=== PATIENT | male | born 1970 | race Caucasian/White ===

== ENCOUNTER → 2020-11-10 10:12 | Outpatient (CLI) | payer BC, SELFPAY ==
[2020-11-10 12:05] LABS: Basophils # 0.1 K/mm3 (0-0.2); Eosinophils # 0.2 K/mm3 (0.0-0.4); Eosinophils % 1.5 % (0.1-12.0); Hematocrit 52.2 % (42.0-52.0); Lymphocytes # 1.2 K/mm3 (0.7-4.5); Lymphocytes % 10.1 % (10-50); Mean Corpuscular Hemoglobin 33.3 pg (27.0-31.2); Mean Corpuscular Volume 95.1 fl (80-94); Mean Platelet Volume 8.6 fl (7.4-10.4); Monocytes # 0.6 K/mm3 (0.1-1.0); Monocytes % 5.1 % (1.7-9.3); Neutrophils # 9.4 K/mm3 (1.8-7.8); Neutrophils % 82.3 % (37.0-80.0); Platelet Count 259 K/mm3 (142-424); Red Blood Count 5.49 M/mm3 (4.60-6.20); Red Cell Distribution Width 14.1 % (11.5-17.5); White Blood Count 11.4 K/mm3 (4.8-10.8)
[2020-11-10 17:10] LABS: Hemoglobin 18.2 g/dL (14.1-18.0)
== END ==
PROVIDERS: PCP Family Medicine; Visit Provider Physician Assistant
DX: Z20.822 Contact with and (suspected) exposure to COVID-19 (principal)
CPT/HCPCS: 85025; U0003

== ENCOUNTER → 2021-08-02 14:00 | Outpatient (CLI) | payer BC, SELFPAY | PROVIDERS: Visit Provider Family Medicine | DX: H61.892 Other specified disorders of left external ear (principal) | CPT/HCPCS: 87070; 87205 ==

== ENCOUNTER 2022-05-02 09:34 | Emergency (ER) | payer BC, SELFPAY ==
[2022-05-02 09:51] VITALS: BP 138/88; PULSE 103; RESP 18; TEMP 36.7; O2SAT 97; BMI 38.7
--- NOTE | 2022-05-02 10:00 | HMH.EDUTC ---
[facility] Disposition Clinical Impression: Viral syndrome Sinusitis Qualifiers: Sinusitis location: unspecified location Chronicity: acute Recurrence: non-recurrent Qualified Code(s): J01.90 - Acute sinusitis, unspecified Disposition: Home, Self-Care Condition on Discharge: Good Instructions: DI for Sinusitis Additional Instructions: Drink plenty of fluids. Take tylenol or ibuprofen for pain or fever. Take the medications as directed. Follow up with your regular doctor. GO TO THE ER FOR ANY WORSENING SYMPTOMS uarantine until you know the results of your covid-19 test. Notify your school or workplace of your results and follow their instructions regarding return to work/school. Prescriptions: Benzonatate [Benzonatate 100mg cap] 100 mg PO TIDP PRN #30 cap PRN Reason: Cough Transmission Status: Received by [facility] methylPREDNISolone [Medrol] 4 mg PO DIRECTED 6 Days #21 packet Transmission Status: Received by [facility] Azithromycin [Z-Ike 250mg Tab*] 250 mg PO UD DOSE PK #6 tab Transmission Status: Received by [facility] Referrals: Geo Crooks MD [Primary Care Provider] - Time of Disposition: 10:15 Medical Decision Making - Medical Records Medical records reviewed: No: I reviewed the patient's medical records. - Asim Inquiry Pt receiving controlled substance: No Vital Signs: 05/02/22 09:51 05/02/22 10:25 Temperature 98.1 F 98.1 F Temperature Source Oral Oral Pulse Rate 94 H Pulse Rate [Left Radial] 103 H Respiratory Rate 18 18 Blood Pressure 130/79 Blood Pressure [Right Arm] 138/88 Blood Pressure Mean [Right Arm] 104 02 Sat by Pulse Oximetry 97 Oxygen Delivery Method Room Air Room Air Orders (Tests/Meds): ORDERS Category Date Time Status Covid-19 Nasal PCR ([facility]) Routine Lab 05/02/22 09:47 Received [facility] HPI - General Stated complaint: bodyaches, feverish, head congestion Time Seen by Provider: 05/02/22 10:00 Mode of Arrival: Ambulatory Source of Information: Patient Limitations: No Limitations Description of Symptoms (Recalled from Triage Doc. by RN): pt to [facility] c/o body aches, congestion and weakness that started this morning. HEENT Symptoms (Recalled from RN notes): Yes Resp Symptoms (Recalled from RN notes): No Skin Symptoms (Recalled from RN notes): No MS Symptoms (Recalled from RN notes): No Functional Status (Recalled from RN notes): na - History of Present Illness Provider Complaint: He c/o body aches, chills, and malaise since this morning. He started having a head ache and sinus congestion last night. He denies significant cough. - Related Data Home Medications Medication Instructions Recorded Confirmed metoprolol succinate 25 mg capsule 25 mg PO DAILY 07/13/18 05/02/22 sprinkle, ext. release 24 hr omeprazole 10 mg capsule,delayed 10 mg PO DAILY 07/13/18 05/02/22 release Previous Rx's Medication Instructions Recorded Azithromycin [Z-Ike 250mg Tab*] 250 mg PO UD DOSE PK #6 tab 05/02/22 Benzonatate [Benzonatate 100mg 100 mg PO TIDP PRN #30 cap 05/02/22 cap] methylPREDNISolone [Medrol] 4 mg PO DIRECTED 6 Days #21 05/02/22 packet Allergies Allergy/AdvReac Type Severity Reaction Status Date / Time Penicillins [PENICILLINS] Allergy Unknown Verified 05/02/22 09:51 - Worker's Comp Is this a Worker's Comp case?: No [facility] History - Hepatitis A Screen Attestation statement:: This patient has been screened for Hepatitis A risk factors. I have reviewed the patient's past medical history: Yes Medical History: Reports:: Gastroesophageal Reflux Disease(GERD), Hypertension Other Medical History: Reports: Other (gout) Other Surgeries: Yes: No Previous Surgery - Social History Smoking Status: Current every day smoker Tobacco Type: cigarettes # Packs/Day (cigarettes): 1 Alcohol Intake: current Alcohol Intake Frequency:: a few times a month Occu
[2022-05-02 10:25] VITALS: BP 130/79; PULSE 94; RESP 18; TEMP 36.7; O2SAT 97
== END 2022-05-02 10:26 | disposition home or self-care (01) ==
LOC: UTC 09:41
PROVIDERS: Emergency Provider Nurse Practitioner Family; PCP Family Medicine
DX: J01.90 Acute sinusitis, unspecified (principal)
CPT/HCPCS: 99212; C9803; G0463; U0003; U0005

== ENCOUNTER 2024-08-07 10:18 | Observation (INO) | payer BC, SELFPAY ==
[2024-08-07] VITALS (12 sets, daily range): BP systolic 141–188; BP diastolic 72–104; PULSE 102–129; RESP 16–20; TEMP 36.6–36.9; O2SAT 95–99; BMI 26.8; BMI 40.1; BMI 41.0
[2024-08-07 10:51] LABS: Microscopic, Urine URINE MICROSCOPIC (MICROSCOPIC)
[2024-08-07 10:53] LABS: Appearance,Urine CLEAR (Clear); Bilirubin,Urine Negative (Negative); Blood, Urine Negative (Negative); Color,Urine YELLOW (Yellow); Glucose,Urine (UA) Negative (Negative); Ketones,Urine Negative (Negative); Leukocyte Esterase,Urine Negative (Negative); Nitrate,Urine Negative (Negative); PH,Urine 6.5 (5.0-8.5); Protein,Urine Negative (Negative); Urobilinogen,Urine 0.2 EU/dl (0.2)
--- NOTE | 2024-08-07 11:13 | EXP.UTC ---
Discharge Plan Disposition Patient Disposition: Still a Patient Condition: Good Clinical Impressions Clinical Impression: Diverticulitis Discharge ED Provider: Judson Godinez [facility] HPI General Chief complaint: Urogenital-Male Stated complaint: possibly prostate problems Mode of Arrival: Ambulatory Source of Information: Patient Limitations: No Limitations Time Seen by Provider: 08/07/24 11:13 Description of Symptoms (Recalled from Triage Doc. by RN): PATIENT C/O LOWER ABDOMINAL/PELVIC AND LOWER BACK PAIN THAT STARTED FRIDAY HEENT Symptoms (Recalled from RN notes): No Resp Symptoms (Recalled from RN notes): No Skin Symptoms (Recalled from RN notes): No MS Symptoms (Recalled from RN notes): No Functional Status (Recalled from RN notes): WNL History of Present Illness Provider Complaint: Patient states he has been having pain in his lower abdomen/pevic area and lower back since States that at times the pain feels like it goes into his groin and penis area, States pain started on and he did do some heavy lifting last week helping a friend, States he did have Prostatitis several years ago that was similar to thius ad seen urology, Denies hematuria denies hx of kidney stones, denies fever, denies chills, reports burning at times with urine Related Data Home Medications ?Medication ?Instructions ?Recorded ?Confirmed colchicine 0.6 mg tablet 0.6 mg PO DAILY 08/07/24 08/07/24 irbesartan 150 mg tablet 150 mg PO DAILY 08/07/24 08/07/24 omeprazole 20 mg capsule,delayed 20 mg PO DAILY 08/07/24 08/07/24 release Allergies Allergy/AdvReac Type Severity Reaction Status Date / Time Penicillins [PENICILLINS] Allergy Unknown Verified 01/26/24 10:36 Worker's Comp Is this a Worker's Comp case?: No [facility] Disclaimer: The information contained in this section may have been updated after the patient was seen, as this information can be updated by other users. Medical History (Updated 08/07/24 @ 16:59 by Adam Mccurdy MD) Cauliflower ear Gout GERD (gastroesophageal reflux disease) Hypertension Surgical History No significant past surgical history Family History Other No significant family history Social History (Updated 08/07/24 @ 16:14 by Taniya Quiroz RN) Smoking Status: Current every day smoker tobacco type: cigarettes packs per day: 1 alcohol intake: current alcohol intake frequency: a few times a month current occupational status: employed Travel in the last 8 weeks: Inside the [place] ROS Obtained: Yes All systems reviewed & no additional complaints except as documented and Yes Systems reviewed as appropriate & no additional complaints except as documented Constitutional Constitutional: Reports system reviewed and no additional complaints, except as documented, Reports as per HPI, Denies body ache, Denies chills and Denies fever(s) ENT Ears, Nose, Mouth, and Throat: Reports system reviewed and no additional complaints, except as documented and Reports as per HPI Cardiovascular Cardiovascular: Reports system reviewed and no additional complaints, except as documented and Reports as per HPI Respiratory Respiratory: Reports system reviewed and no additional complaints, except as documented and Reports as per HPI Gastrointestinal Gastrointestingal: Reports system reviewed and no additional complaints, except as documented, as per HPI and abdominal pain (lower abdominal pain); Denies nausea Genitourinary Male Genitourinary: Reports system reviewed and no additional complaints, except as documented, Reports as per HPI, Reports urinary urgency and Reports other (burning at times with urination) Physical Exam General General appearance: alert and in no apparent distress ENT ENT exam: Present mucous membranes moist Respiratory Respiratory exam: Present normal lung sounds bilaterally; Absent respiratory distress or wheezes Cardiovascular Cardiovascular exam: Present regular rate, normal rhythm and tachycardia Abdominal Exam Abdominal exam: Present soft and tenderness (reports tenderness with palpation in lower abdomen/pelvic area) Back Exam Back 1 view image: 1. reports achy like pain on and off since Neurological Exam Neurological exam: Present alert, oriented X3 and normal gait Medical Decision Making Medical Records Screening: Per USPSTF and CDC recommendations, given the prevalence of disease in our region, it is our hospital?s policy to screen for HIV and viral Hepatitis for all patients aged 18 and over and those with ongoing risk factors. Asim Inquiry Pt receiving controlled substance: No Asim was queried for this patient: No Vital Signs: 08/07/24 10:50 Temperature 97.8 F Temperature Source Oral Pulse Rate [Left Brachial] 110 H Respiratory Rate 18 Blood Pressure [Left Arm] 166/103 H Blood Pressure Mean [Left Arm] 124 Blood Pressure Source [Left Arm] Automatic Cuff Blood Pressure Position [Left Arm] Sitting 02 Sat by Pulse Oximetry 98 Oxygen Delivery Method Room Air Lab Data Lab results reviewed: Yes I reviewed the patient's lab results. 08/07/24 11:50 08/07/24 11:50 Orders (Tests/Meds): ORDERS Category Date Time Status UA [Urinalysis and Microscopic] Stat Lab 08/07/24 10:41 Received Medical Decision Narrative: Discussed with patient and recommended transfer to the ED for further work up and evaluation due to complaint of lower abdomen pain and patient declined at this time, wants to wait until urine results back Urine results back again discussed with patient about transfer to the ED for furhter work up and evaluation and initially patient declined then states that pain is getting worse and wanting to go to the ED to get something to help with the pain, states pain in his pelvic area is worse than it was on arrival
[2024-08-07 11:15] LABS: WBC,Urine Occasional #/hpf (0-3)
--- NOTE | 2024-08-07 11:43 | PC.NURSE ---
PATIENT SENT TO ER PER. Alpesh DAWSON APRN FOR FURTHER EVALUATION. REPORT GIVEN TO DR. NEWBERRY BY Alpesh DAWSON APRN. PATIENT AMBULATED TO ER WITH ER STAFF ASSIST AT THIS TIME
--- NOTE | 2024-08-07 11:44 | PC.NURSE ---
pt arrived to er from [facility]
--- NOTE | 2024-08-07 12:24 | ED_ITS ---
Discharge Plan Disposition Patient Disposition: Still a Patient Condition: Good Clinical Impressions Clinical Impression: Diverticulitis Discharge ED Provider: Judson Godinez Adult HPI General Chief complaint: Urogenital-Male Stated complaint: possibly prostate problems Time Seen by Provider: 08/07/24 11:13 Mode of Arrival: Ambulatory Source of Information: Patient Limitations: No Limitations Description of Symptoms (Recalled from ER Triage Doc. by RN): pelvic and anal pain. burning when he urinates. pressure History of Present Illness HPI narrative: Patient is a 54-year-old male past medical history of hypertension presenting for abdominal pain. Patient states since has been having lower abdominal pain that radiates to his back intermittently. Patient said that this is similar to symptoms he has had in the past with prostatitis and was ultimately seen by urologist in [place] and the pain resolved. Patient has had no fevers, dysuria, chest pain, shortness of breath, diarrhea or nausea. Patient said that he has no pain with defecation. Patient was initially seen in the urgent treatment center who did a urinalysis that was negative but his pain continued and was transferred here for further evaluation. Related Data Home Medications ?Medication ?Instructions ?Recorded ?Confirmed colchicine 0.6 mg tablet 0.6 mg PO DAILY 08/07/24 08/07/24 irbesartan 150 mg tablet 150 mg PO DAILY 08/07/24 08/07/24 omeprazole 20 mg capsule,delayed 20 mg PO DAILY 08/07/24 08/07/24 release Allergies Allergy/AdvReac Type Severity Reaction Status Date / Time Penicillins [PENICILLINS] Allergy Unknown Verified 01/26/24 10:36 [facility] Disclaimer: The information contained in this section may have been updated after the patient was seen, as this information can be updated by other users. Medical History (Updated 08/07/24 @ 16:14 by Taniya Quiroz RN) Cauliflower ear Gout GERD (gastroesophageal reflux disease) Hypertension Surgical History No significant past surgical history Family History Other No significant family history Social History (Updated 08/07/24 @ 16:14 by Taniya Quiroz RN) Smoking Status: Current every day smoker tobacco type: cigarettes packs per day: 1 alcohol intake: current alcohol intake frequency: a few times a month current occupational status: employed Travel in the last 8 weeks: Inside the [place] Other Medical History Have you received the Pneumonia Vaccine: No ROS Obtained: Yes Systems reviewed as appropriate & no additional complaints except as documented Physical Exam General General appearance: alert, anxious and other (Appears uncomfortable in bed) Chest Chest inspection: Present symmetric chest wall rise Respiratory Respiratory exam: Present normal lung sounds bilaterally; Absent respiratory distress Cardiovascular Cardiovascular exam: Present tachycardia Abdominal Exam Abdominal exam: Present soft and tenderness; Absent guarding or rebound Abdominal tenderness: Present RLQ (More prominent than left lower quadrant) and LLQ exam: Present normal inspection Extremities Exam Extremities exam: Present normal inspection Neurological Exam Neurological exam: Present alert and oriented X3 Psychiatric Psychiatric exam: Present anxious Skin Skin exam: Present warm and dry Medical Decision Making Medical Records Screening: Per USPSTF and CDC recommendations, given the prevalence of disease in our region, it is our hospital?s policy to screen for HIV and viral Hepatitis for all patients aged 18 and over and those with ongoing risk factors. Asim Inquiry Pt receiving controlled substance: No Vital Signs: 08/07/24 10:50 08/07/24 11:45 08/07/24 12:00 Temperature 97.8 F 98.2 F Temperature Source Oral Oral Pulse Rate 102 H Pulse Rate [Left Brachial] 110 H 117 H Respiratory Rate 18 18 Blood Pressure 171/94 H Blood Pressure [Left Arm] 166/103 H 161/104 H Blood Pressure Mean [Left Arm] 124 123 Blood Pressure Source [Left Arm] Automatic Cuff Blood Pressure Position [Left Arm] Sitting 02 Sat by Pulse Oximetry 98 99 97 Oxygen Delivery Method Room Air Room Air 08/07/24 12:30 08/07/24 13:01 08/07/24 13:30 Temperature Temperature Source Pulse Rate 117 H 114 H 119 H Pulse Rate [Left Brachial] Respiratory Rate Blood Pressure 188/93 H 161/90 H 145/79 H Blood Pressure [Left Arm] Blood Pressure Mean [Left Arm] Blood Pressure Source [Left Arm] Blood Pressure Position [Left Arm] 02 Sat by Pulse Oximetry 99 98 98 Oxygen Delivery Method Room Air Room Air Room Air 08/07/24 14:00 08/07/24 14:24 08/07/24 14:30 Temperature Temperature Source Pulse Rate 123 H 129 H 125 H Pulse Rate [Left Brachial] Respiratory Rate 20 Blood Pressure 141/89 H 141/89 H 156/84 H Blood Pressure [Left Arm] Blood Pressure Mean [Left Arm] Blood Pressure Source [Left Arm] Blood Pressure Position [Left Arm] 02 Sat by Pulse Oximetry 95 97 96 Oxygen Delivery Method Room Air Room Air Room Air 08/07/24 15:50 Temperature 98.4 F Temperature Source Pulse Rate 123 H Pulse Rate [Left Brachial] Respiratory Rate 20 Blood Pressure 156/84 H Blood Pressure [Left Arm] Blood Pressure Mean [Left Arm] Blood Pressure Source [Left Arm] Blood Pressure Position [Left Arm] 02 Sat by Pulse Oximetry Oxygen Delivery Method Room Air Lab Data Lab Results 08/07/24 10:41: Urine Color Yellow, Urine Appearance Clear, Urine pH 6.5, Ur Specific [place] 1.020, Urine Protein Negative, Urine Glucose (UA) Negative, Urine Ketones Negative, Urine Blood Negative, Urine Nitrate Negative, Urine Bilirubin Negative, Urine Urobilinogen 0.2, Ur Leukocyte Esterase Negative, Urine RBC None, Urine WBC Occasional 08/07/24 11:50: WBC 12.4 H, RBC 5.18, Hgb 17.5, Hct 49.6, MCV 95.7 H, MCH 33.8 H , MCHC 35.3, RDW 14.2, Plt Count 327, MPV 8.5, Neut % (Auto) 85.9 H, Lymph % (Auto) 8.1 L, [place] % (Auto) 3.3, Eos % (Auto) 1.6, Baso % (Auto) 1.1, Neut # (Auto) 10.7 H, Lymph # (Auto) 1.0, [place] # (Auto) 0.4, Eos # (Auto) 0.2, Baso # (Auto) 0.1, Total Counted 100, Neutrophils % (Manual) 86 H, Lymphocytes % (Manual) 6 L, Monocytes % (Manual) 7, Eosinophils % (Manual) 1, Platelet Estimate Normal, RBC Morphology Normal, Sodium 136, Potassium 4.4, Chloride 102, Carbon Dioxide 27, Anion Gap 11.4, BUN 11, Creatinine 1.20, Estimated Creat Clear 129, Estimated GFR 64, Est GFR ( Amer) 77, Glucose 131 H, Calcium 9.3, Total Bilirubin 1.2, AST 42, ALT 59, Alkaline Phosphatase 92, Total Protein 7.8, Albumin 4.8, Globulin 3.0, Albumin/Globulin Ratio 1.6, Lipase 67 08/07/24 12:42: Lactate 1.4 08/07/24 11:50 08/07/24 11:50 Orders (Tests/Meds): ED MEDICATIONS Generic Name Dose Route Start Last Admin Trade Name Angel PRN Reason Stop Dose Admin Acetaminophen 650 mg 08/07/24 16:34 Acetaminophen 325mg Tab PO 09/06/24 16:33 Q6HP PRN Fever or Mild Pain (1-3) Piperacillin Sod/Tazobactam 100 mls @ 200 mls/hr 08/07/24 14:30 08/07/24 15:14 Sod 4.5 gm/ Sodium Chloride IV 08/17/24 14:29 200 mls/hr Q8H STONEY Administration Sodium Chloride 1,000 mls @ 150 mls/hr 08/07/24 16:45 Sod Chlor 0.9% 1000ml Bag IV 09/06/24 16:44 .Q6H40M STONEY Morphine Sulfate 2 mg 08/07/24 16:34 Morphine 2mg/Ml Syringe IV 09/06/24 16:33 Q2HP PRN Severe Pain (7-10) Nicotine 14 mg 08/07/24 15:30 08/07/24 15:39 Nicotine 14mg/24hrs Patch TD 09/06/24 15:29 Not Given DAILY STONEY Nicotine 21 mg 08/08/24 09:00 08/07/24 15:40 Nicotine 21mg/24hr Patch TD 09/07/24 08:59 21 mg DAILY STONEY Administration Discontinued Medications Generic Name Dose Route Start Last Admin Trade Name Angel PRN Reason Stop Dose Admin Acetaminophen 1,000 mg 08/07/24 12:24 08/07/24 12:36 Acetaminophen 500mg Tab PO 08/07/24 12:25 1,000 mg ONCE ONE Administration Lactated Ringer's 1,000 mls @ 999 mls/hr 08/07/24 12:24 08/07/24 12:36 Lactated Ringer's 1000 Ml Bag IV 08/07/24 13:24 999 mls/hr .Q1H1M ONE Administration Lactated Ringer's 1,000 mls @ 999 mls/hr 08/07/24 14:26 08/07/24 15:54 Lactated Ringer's 1000 Ml Bag IV 08/07/24 15:26 999 mls/hr .Q1H1M ONE Administration Iopamidol 75 ml 08/07/24 13:53 08/07/24 13:54 Iopamidol-370 (76%);100ml Bottle IV 08/07/24 13:54 75 ml ONCE ONE Administration Morphine Sulfate 4 mg 08/07/24 12:24 08/07/24 12:41 Morphine 4mg/Ml Syringe IV 08/07/24 12:25 Not Given ONCE ONE Ondansetron HCl 4 mg 08/07/24 12:24 08/07/24 12:41 Ondansetron 4mg/2ml Vial IV 08/07/24 12:25 Not Given ONCE ONE Sodium Chloride 10 ml 08/07/24 13:53 08/07/24 13:54 Sodium Chloride 0.9% 10ml Syr (Rad Only) IV 08/07/24 13:54 10 ml ONCE ONE Administration ORDERS Category Date Time Status CT abdomen pelvis w con Stat Cat Scan 08/07/24 12:25 Completed Complete Blood Count Auto Diff Stat Lab 08/07/24 11:50 Completed Comprehensive Metabolic Panel Stat Lab 08/07/24 11:50 Completed HIV (1&2) Antibody Rapid Stat Lab 08/07/24 11:50 Received Hep C Ab with Reflex to RNA Stat Lab 08/07/24 11:50 Received Lactic Acid Stat Lab 08/07/24 12:42 Completed Lipase Stat Lab 08/07/24 11:50 Completed UA [Urinalysis and Microscopic] Stat Lab 08/07/24 10:41 Completed Blood Culture Stat Micro 08/07/24 15:10 Received Urine Culture Stat Micro 08/07/24 11:30 Ordered Medical Decision Narrative: In summary, this 54-year-old male presents to the emergency department today with abdominal pain. On initial evaluation patient is tachycardic, in acute distress due to pain, but otherwise hemodynamically stable alert and oriented. Have concern for possible prostatitis or intra-abdominal pathology. Differential diagnosis includes but is not limited to intra-abdominal abscess, prostatitis, appendicitis, diverticulitis, UTI. Based on these concerns, I ordered labs imaging and pain medication. Patient received morphine and Zosyn for treatment. Labs personally reviewed demonstrate leukocytosis, elevated glucose. XR personally interpreted demonstrates no acute pneumonia or pneumothorax. CT imaging personally interpreted demonstrate no obvious hemopneumoperitoneum. I had an interactive discussion with Dr. Mccurdy and Dr. Crooks admitting team. On reassessment patient's pain is well-controlled, but is persistently tachycardic. I had a discussion with general surgery due to concern of a possible appendicitis on the CT scan and they recommended hospital medicine admission continuing antibiotics and follow-up management. Of note patient does drink alcohol, and I gave him a nicotine patch. Patient has never had alcohol withdrawal symptoms and drinks about 6 beers a day. Patient did receive 2 L of fluid which is below the normal sepsis bolus due to national shortage of IV fluids. Admission as considered and patient was admitted to the hospital medicine team for further management. Of note, social determinants of health include alcohol and tobacco use. Critical Care Critical Care Time Critical Care Time: No
--- NOTE | 2024-08-07 12:25 | CT_ITS ---
PROCEDURE INFORMATION: Exam: CT Abdomen And Pelvis With Contrast Exam date and time: 08/07/2024 1:52 PM Age: 54 years old Clinical indication: Abdominal pain; Localized; Lower; Additional info: Lower quadrant abdominal pain, HX of prostatitis TECHNIQUE: Imaging protocol: Computed tomography of the abdomen and pelvis with contrast. Radiation optimization: All CT scans at this facility use at least one of these dose optimization techniques: automated exposure control; mA and/or kV adjustment per patient size (includes targeted exams where dose is matched to clinical indication); or iterative reconstruction. Contrast material: ISOVUE; Contrast volume: 75 ml; Contrast route: IV; COMPARISON: No relevant prior studies available. FINDINGS: Lungs: There is a pulmonary parenchymal calcification in the left lung consistent with remote granulomatous organism exposure.The visualized lung bases are otherwise clear. Pleural spaces: There are no pleural effusions. Heart: The visualized portions of the heart are unremarkable. There is no evidence of pericardial fluid collections. Coronary arteries: There is mild atherosclerotic calcification of the coronary arteries. Liver: There is diffuse decrease in hepatic/liver parenchymal density consistent with fatty infiltration. There is mild enlargement of the liver. The liver measures 18.8 cm in CC dimension. Gallbladder and biliary ducts: The gallbladder is normal. Pancreas: The pancreas is normal. Spleen: There is mild nonspecific splenomegaly. The spleen measures 14.4 cm in CC dimension. Adrenal glands: The adrenal glands are normal. Kidneys and ureters: There is mild bilateral nonspecific inflammatory perinephric stranding. The kidneys are normal. Stomach and bowel: There is a 17 mm duodenal diverticulum involving the junction of 3rd and 4th portion of the duodenum. No evidence of diverticulitis. The stomach and duodenum are otherwise within range of normal. There is a segment of colonic wall thickening and pericolonic fat stranding and fluid involving the mid sigmoid colon suggestive of acute colitis. No significant diverticula are present. Lack of gastrointestinal contrast limits evaluation of bowel. Unopacified loops of small bowel within range of normal. Appendix: There is mild increase in appendiceal diameter measuring approximately 8.1 mm without surrounding inflammation. Intraperitoneal space: There is a minor amount of free fluid in the right lower abdomen and pelvis. No evidence of intraperitoneal free air. Vasculature: There is no evidence of an aortic aneurysm. Lymph nodes: Unremarkable. No enlarged lymph nodes. Urinary bladder: The bladder is normal. Reproductive: The prostate and seminal vesicles are normal. Bones/joints: The thoracolumbar spine demonstrates mild degenerative changes at multiple levels. Soft tissues: There is a tiny fat-containing umbilical hernia. IMPRESSION: 1. Acute colitis/diverticulitis involving mid sigmoid colon. As an underlying colonic malignancy cannot be excluded, a follow-up examination after a course of treatment is recommended if clinically warranted. 2. Mild increase in appendiceal diameter measuring approximately 8.1 mm without surrounding inflammation. Long-standing physiologic enlargement is suspected but early acute appendicitis is conceivable. Recommend clinical correlation. 3. Mild splenomegaly. 4. Mild hepatomegaly and fatty hepatic infiltration.
[2024-08-07] MEDS: LACTATED RINGERS 1000ML 1,000 ML 999 ML IV ×2 (12:36→15:54)
[2024-08-07] MEDS: ACETAMINOPHEN 500MG TAB 1000 MG PO (12:36)
[2024-08-07 12:45] LABS: Basophils # 0.1 K/mm3 (0-0.2); Basophils % 1.1 % (0.1-2.0); Eosinophils # 0.2 K/mm3 (0.0-0.4); Eosinophils % 1.6 % (0.1-12.0); Hematocrit 49.6 % (42.0-52.0); Hemoglobin 17.5 g/dL (14.1-18.0); Lymphocytes % 8.1 % (10-50); Mean Corpuscular HGB Conc 35.3 g/dL (31.8-35.4); Mean Corpuscular Hemoglobin 33.8 pg (27.0-31.2); Mean Corpuscular Volume 95.7 fl (80-94); Mean Platelet Volume 8.5 fl (7.4-10.4); Monocytes # 0.4 K/mm3 (0.1-1.0); Monocytes % 3.3 % (1.7-9.3); Neutrophils # 10.7 K/mm3 (1.8-7.8); Neutrophils % 85.9 % (37.0-80.0); Platelet Count 327 K/mm3 (142-424); Red Blood Count 5.18 M/mm3 (4.60-6.20); Red Cell Distribution Width 14.2 % (11.5-17.5); White Blood Count 12.4 K/mm3 (4.8-10.8)
[2024-08-07 12:46] LABS: Lipase 67 U/L (23-300)
[2024-08-07 12:54] LABS: MANUAL DIFFERENTIAL MANUAL DIFFERENTIAL (MANUAL DIFF)
--- NOTE | 2024-08-07 13:16 | PC.NURSE ---
Rounded on pt. No needs voiced at this time. Call light within reach.
[2024-08-07 13:24] LABS: Lactic Acid 1.4 mmol/L (0.7-2.1)
[2024-08-07 13:39] LABS: Alanine Aminotransferase 59 U/L (12-78); Albumin Level 4.8 g/dl (3.5-5.0); Albumin/Globulin Ratio 1.6 (1.1-1.8); Alkaline Phosphatase 92 U/L (38-126); Anion Gap 11.4 mEq/L (5-15); Aspartate Amino Transferase 42 U/L (17-59); Bilirubin,Total 1.2 mg/dl (0.2-1.3); Blood Urea Nitrogen 11 mg/dl (9-20); Calcium 9.3 mg/dl (8.4-10.2); Carbon Dioxide 27 mmol/L (22.0-30.0); Chloride 102 mmol/L (98-107); Creatinine Clearance Estimated 129 mL/min (50-200); Estimated Glomerular Filt Rate 64 ml/min (>60); GFR (African American) 77 ML/MIN (>60); Glucose 131 mg/dl (74-100); Potassium 4.4 mmoL/L (3.5-5.1); Sodium 136 mmol/L (136-145); Total Protein,Serum 7.8 g/dl (6.3-8.2)
--- NOTE | 2024-08-07 13:47 | PC.NURSE ---
Pt gone to CT via wheelchair
[2024-08-07 13:53] LABS: Eosinophils % 1 % (0-3); Lymphocytes % 6 % (10-50); Monocytes % 7 % (2-9); Neutrophils % 86 % (42-76); Total Cells Counted 100
[2024-08-07 13:54] LABS: Platelet Estimate Normal; RBC Morphology Normal
[2024-08-07] MEDS: IOPAMIDOL-370 (76%);100ML BOTTLE 75 ML IV (13:54)
[2024-08-07] MEDS: SODIUM CHLORIDE 0.9% 10ML SYR (RAD ONLY) 10 ML IV (13:54)
--- NOTE | 2024-08-07 13:55 | PC.NURSE ---
Pt returned to room from CT
--- NOTE | 2024-08-07 15:00 | PC.NURSE ---
declined sepsis bolus @ this time
--- NOTE | 2024-08-07 15:10 | PC.NURSE ---
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
--- NOTE | 2024-08-07 15:12 | PC.NURSE ---
speaking to Dr. Mccurdy
[2024-08-07] MEDS: PIPERACILLIN/TAZO 4.5 GM in 0.9 % SODIUM CHLORIDE 100 ML IV ×2 (15:14→22:57)
--- NOTE | 2024-08-07 15:39 | PC.NURSE ---
spoke with house regarding bed
[2024-08-07] MEDS: NICOTINE 21MG/24HR PATCH 21 MG TD (15:40)
--- NOTE | 2024-08-07 15:49 | PC.NURSE ---
report called to Taniya
--- NOTE | 2024-08-07 15:59 | PC.NURSE ---
arrived by w/c from ED
--- NOTE | 2024-08-07 16:55 | P.CONS_ITS ---
History of Present Illness *Reason for visit:: Lower abdominal pain *History of present illness: This is a 54-year-old gentleman who presented to the emergency department for evaluation regarding bilateral lower abdominal pain. A CT scan obtained in the emergency department with IV contrast revealed changes consistent with sigmoid colitis (possible diverticulitis). His appendix was noted to be 8.1 mm; however, no surrounding inflammation noted. Per the radiologist impression this was felt to most likely represent long-standing physiologic enlargement...but early acute appendicitis is conceivable . [facility] Disclaimer: The information contained in this section may have been updated after the patient was seen, as this information can be updated by other users. Medical History (Updated 08/07/24 @ 16:59 by Adam Mccurdy MD) Cauliflower ear Gout GERD (gastroesophageal reflux disease) Hypertension Surgical History No significant past surgical history Family History Other No significant family history Social History (Updated 08/07/24 @ 16:14 by Taniya Quiroz RN) Smoking Status: Current every day smoker tobacco type: cigarettes packs per day: 1 alcohol intake: current alcohol intake frequency: a few times a month current occupational status: employed Travel in the last 8 weeks: Inside the [facility] Meds Home Medications and Allergies Home Medications ?Medication ?Instructions ?Recorded ?Confirmed ?Type colchicine 0.6 mg tablet 0.6 mg PO DAILY 08/07/24 08/07/24 History irbesartan 150 mg tablet 150 mg PO DAILY 08/07/24 08/07/24 History omeprazole 20 mg capsule,delayed 20 mg PO DAILY 08/07/24 08/07/24 History release New Prescriptions to Start Prescriptions: Allergies Allergy/AdvReac Type Severity Reaction Status Date / Time Penicillins [PENICILLINS] Allergy Unknown Verified 01/26/24 10:36 Exam (Inpt) Vital signs and Labs for Last 24 Hours: Temp Pulse Resp BP Pulse Ox O2 Del Method 98.4 F 113 H 17 153/87 H 96 Room Air 08/07/24 16:00 08/07/24 16:00 08/07/24 16:00 08/07/24 16:00 08/07/24 16:00 08/07/24 16:21 Laboratory Results - last 24 hr 10/26/24 10:41: Urine Color Yellow, Urine Appearance Clear, Urine pH 6.5, Ur Specific [place] 1.020, Urine Protein Negative, Urine Glucose (UA) Negative, Urine Ketones Negative, Urine Blood Negative, Urine Nitrate Negative, Urine Bilirubin Negative, Urine Urobilinogen 0.2, Ur Leukocyte Esterase Negative, Urine RBC None, Urine WBC Occasional 08/07/24 11:50: WBC 12.4 H, RBC 5.18, Hgb 17.5, Hct 49.6, MCV 95.7 H, MCH 33.8 H , MCHC 35.3, RDW 14.2, Plt Count 327, MPV 8.5, Neut % (Auto) 85.9 H, Lymph % (Auto) 8.1 L, [place] % (Auto) 3.3, Eos % (Auto) 1.6, Baso % (Auto) 1.1, Neut # (Auto) 10.7 H, Lymph # (Auto) 1.0, [place] # (Auto) 0.4, Eos # (Auto) 0.2, Baso # (Auto) 0.1, Total Counted 100, Neutrophils % (Manual) 86 H, Lymphocytes % (Manual) 6 L, Monocytes % (Manual) 7, Eosinophils % (Manual) 1, Platelet Estimate Normal, RBC Morphology Normal, Sodium 136, Potassium 4.4, Chloride 102, Carbon Dioxide 27, Anion Gap 11.4, BUN 11, Creatinine 1.20, Estimated Creat Clear 129, Estimated GFR 64, Est GFR ( Amer) 77, Glucose 131 H, Calcium 9.3, Total Bilirubin 1.2, AST 42, ALT 59, Alkaline Phosphatase 92, Total Protein 7.8, Albumin 4.8, Globulin 3.0, Albumin/Globulin Ratio 1.6, Lipase 67 08/07/24 12:42: Lactate 1.4 I & O for Labs for Last 24 Hours: Intake & Output 08/05/24 08/06/24 08/07/24 08/08/24 11:59 11:59 11:59 11:59 Output Total 0 / 0 Balance 0 / 0 Weight 280 lb 286 lb 1.6 oz Constitutional: no acute distress Respiratory: Absent respiratory distress GI: Present soft and tenderness (Bilateral lower quadrant/suprapubic tenderness to palpation); Absent guarding Results Labs 08/07/24 11:50 10/26/24 11:50 Labs: Laboratory Results - last 24 hr 08/07/24 10:41: Urine Color Yellow, Urine Appearance Clear, Urine pH 6.5, Ur Specific [place] 1.020, Urine Protein Negative, Urine Glucose (UA) Negative, Urine Ketones Negative, Urine Blood Negative, Urine Nitrate Negative, Urine Bilirubin Negative, Urine Urobilinogen 0.2, Ur Leukocyte Esterase Negative, Urine RBC None, Urine WBC Occasional 08/07/24 11:50: WBC 12.4 H, RBC 5.18, Hgb 17.5, Hct 49.6, MCV 95.7 H, MCH 33.8 H , MCHC 35.3, RDW 14.2, Plt Count 327, MPV 8.5, Neut % (Auto) 85.9 H, Lymph % (Auto) 8.1 L, [place] % (Auto) 3.3, Eos % (Auto) 1.6, Baso % (Auto) 1.1, Neut # (Auto) 10.7 H, Lymph # (Auto) 1.0, [place] # (Auto) 0.4, Eos # (Auto) 0.2, Baso # (Auto) 0.1, Total Counted 100, Neutrophils % (Manual) 86 H, Lymphocytes % (Manual) 6 L, Monocytes % (Manual) 7, Eosinophils % (Manual) 1, Platelet Estimate Normal, RBC Morphology Normal, Sodium 136, Potassium 4.4, Chloride 102, Carbon Dioxide 27, Anion Gap 11.4, BUN 11, Creatinine 1.20, Estimated Creat Clear 129, Estimated GFR 64, Est GFR ( Amer) 77, Glucose 131 H, Calcium 9.3, Total Bilirubin 1.2, AST 42, ALT 59, Alkaline Phosphatase 92, Total Protein 7.8, Albumin 4.8, Globulin 3.0, Albumin/Globulin Ratio 1.6, Lipase 67 08/07/24 12:42: Lactate 1.4 Assessment and Plan *Assessment and plan (1) Colitis: Status: Acute Category: Medical Code(s): K52.9 - Noninfective gastroenteritis and colitis, unspecified Plan: Sigmoid colitis (possible diverticulitis; however, colonic diverticulum not noted radiographically) remains the most likely etiology with regard to the patient's symptomatology. I agree with the radiologist's interpretation that his 8.1 mm appendix most likely represents long-standing physiologic enlargement. The patient does not have isolated right lower quadrant tenderness. His tenderness is essentially equivalent bilaterally at this time and he has shown improvement since initial evaluation in the emergency department. Continue overall management as per primary service Continue serial abdominal exams Consider repeat CT scan with appendiceal protocol contrast if he develops clinical deterioration Diet as per primary service (NPO after midnight)
[2024-08-07 17:02] LABS: HIV (1&2) Antibody Rapid NONREACTIVE (NONREACTIVE)
[2024-08-07] MEDS: 0.9 % SODIUM CHLORIDE 1000ML 1,000 ML 150 ML IV ×2 (17:03→22:58)
[2024-08-07] MEDS: ACETAMINOPHEN 325MG TAB 650 MG PO (17:08)
--- NOTE | 2024-08-07 19:52 | PC.NURSE ---
Home medication reconciliation was completed during the previous shift for the patient. I consulted Dr Hanna concerning entering orders for the patient's home medications at this time. Patient requested to take his irbesartan tonight because he has not taken it yesterday nor for today. A one time dose of irbesartan 150 mg PO was entered for tonight and OK'd by the MD. Dr Hanna then requested his irbesartan dose to be switched to daily for the morning from then on for the patient's stay. Colchicine 0.6 mg PO daily was also entered.
[2024-08-07] MEDS: IRBESARTAN 150MG TAB 150 MG PO (20:05)
[2024-08-08] VITALS: BP 157/84; PULSE 104; RESP 18; TEMP 36.6; O2SAT 95
[2024-08-08] MEDS: ACETAMINOPHEN 325MG TAB 650 MG PO ×3 (02:15→21:45)
[2024-08-08 04:00] VITALS: BP 125/74; PULSE 91; RESP 18; TEMP 36.5; O2SAT 96; BMI 41.1
--- NOTE | 2024-08-08 04:39 | PC.NURSE ---
Patient is alert and oriented x4. Patient was observed to have eyes closed, respirations even and unlabored on room air, and no apparent distress throughout the night. Patient has been getting up and ambulating to the bathroom independently this shift; patient tolerates ambulation well. Patient reported having some lower abdominal pain upon assessment; however, he has not asked for any pain medication due to this pain. He has requested to take Tylenol once this shift for a headache; after receiving the Tylenol, he was able to go back to resting. Patient has received his IV antibiotics per DEC. Dr Hanna was consulted per patient request to take irbesartan this shift (see prior note) and this was given. Normal saline is currently infusing at 150 mL/hr. Patient tolerated a clear liquid diet prior to being NPO at midnight this shift. Upon auscultation, patient's lung sounds were clear and his bowel sounds were active. Patient's heart rate and blood pressure have been elevated this shift. Patient has not had any other further complaints. At this time, the patient is resting supine in bed. No acute changes noted thus far. Call light within reach.
[2024-08-08] MEDS: PIPERACILLIN/TAZO 4.5 GM in 0.9 % SODIUM CHLORIDE 100 ML IV ×3 (05:58→21:45)
[2024-08-08 07:21] LABS: Basophils # 0.1 K/mm3 (0-0.2); Eosinophils # 0.1 K/mm3 (0.0-0.4)
[2024-08-08 07:33] LABS: Basophils % 0.6 % (0.1-2.0); Eosinophils % 0.9 % (0.1-12.0); Hematocrit 43.4 % (42.0-52.0); Lymphocytes # 1.1 K/mm3 (0.7-4.5); Lymphocytes % 8.3 % (10-50); Mean Corpuscular HGB Conc 34.9 g/dL (31.8-35.4); Mean Corpuscular Hemoglobin 33.6 pg (27.0-31.2); Mean Corpuscular Volume 96.3 fl (80-94); Mean Platelet Volume 8.4 fl (7.4-10.4); Monocytes # 0.6 K/mm3 (0.1-1.0); Monocytes % 4.2 % (1.7-9.3); Neutrophils # 11.7 K/mm3 (1.8-7.8); Platelet Count 224 K/mm3 (142-424); Red Blood Count 4.51 M/mm3 (4.60-6.20); Red Cell Distribution Width 14.3 % (11.5-17.5); White Blood Count 13.7 K/mm3 (4.8-10.8)
[2024-08-08 07:38] VITALS: BP 153/84; PULSE 98; RESP 18; TEMP 36.6; O2SAT 97
[2024-08-08 07:48] LABS: Hemoglobin 15.2 g/dL (14.1-18.0)
[2024-08-08 07:49] LABS: MANUAL DIFFERENTIAL MANUAL DIFFERENTIAL (MANUAL DIFF)
[2024-08-08] MEDS: 0.9 % SODIUM CHLORIDE 1000ML 1,000 ML 150 ML IV (07:58)
--- NOTE | 2024-08-08 08:52 | EXP.HP ---
History of Present Illness *Admission Date: 08/07/24 *Reason for visit:: Abd pain *History of present illness: Mr. Pierce is a 54 year old patient of [facility] who presented to [facility] urgent treatment clinic yesterday complaining of a 3 or 4 day history of lower pelvic pain. He states the pain was worse on the left than the right. It was also made worse by activity/heavy lifting and with straining to urinate or have a bowel movement. He denies constipation and diarrhea. He has not noticed blood in his bowel movements. He states that over the past week he has eaten quite a few peanuts. He typically avoids peanuts, seeds and popcorn due to a history of diverticulitis. [facility] Disclaimer: The information contained in this section may have been updated after the patient was seen, as this information can be updated by other users. Medical History (Updated 08/08/24 @ 09:01 by Geo Crooks MD) Hyperlipidemia Cauliflower ear Gout GERD (gastroesophageal reflux disease) Hypertension Surgical History No significant past surgical history Family History Other No significant family history Social History (Updated 08/07/24 @ 16:14 by Taniya Quiroz RN) Smoking Status: Current every day smoker tobacco type: cigarettes packs per day: 1 alcohol intake: current alcohol intake frequency: a few times a month current occupational status: employed Travel in the last 8 weeks: Inside the [place] Other Medical History Have you received the Flu Vaccine for this season: No Have you received the Pneumonia Vaccine: No Review of Systems Constitutional Constitutional: Denies chills and Denies fever(s) ENT Ears, Nose, Mouth, and Throat: Denies dizziness *Cardiovascular Cardiovascular: Denies chest pain and Denies dyspnea *Respiratory Respiratory: Denies dyspnea *Gastrointestinal Gastrointestinal: Reports as per HPI *Genitourinary Genitourinary: Denies difficulty urinating *Musculoskeletal Musculoskeletal: Denies arthralgias *Neurologic Neurologic: Denies dizziness Meds Home Medications and Allergies Home Medications ?Medication ?Instructions ?Recorded ?Confirmed ?Type colchicine 0.6 mg tablet 0.6 mg PO DAILY 08/07/24 08/07/24 History irbesartan 150 mg tablet 150 mg PO HS 08/07/24 08/08/24 History omeprazole 20 mg capsule,delayed 20 mg PO DAILY 08/07/24 08/07/24 History release New Prescriptions to Start Prescriptions: Allergies Allergy/AdvReac Type Severity Reaction Status Date / Time Penicillins [PENICILLINS] Allergy Unknown Verified 01/26/24 10:36 Exam Data for Last 24 hours Vital signs and Labs for Last 24 Hours: Temp Pulse Resp BP Pulse Ox O2 Del Method 97.9 F 98 H 18 153/84 H 97 Room Air 08/08/24 07:38 08/08/24 07:38 08/08/24 07:38 08/08/24 07:38 08/08/24 07:38 08/08/24 07:38 Laboratory Results - last 24 hr 08/07/24 10:41: Urine Color Yellow, Urine Appearance Clear, Urine pH 6.5, Ur Specific [place] 1.020, Urine Protein Negative, Urine Glucose (UA) Negative, Urine Ketones Negative, Urine Blood Negative, Urine Nitrate Negative, Urine Bilirubin Negative, Urine Urobilinogen 0.2, Ur Leukocyte Esterase Negative, Urine RBC None, Urine WBC Occasional 08/07/24 11:50: WBC 12.4 H, RBC 5.18, Hgb 17.5, Hct 49.6, MCV 95.7 H, MCH 33.8 H, MCHC 35.3, RDW 14.2, Plt Count 327, MPV 8.5, Neut % (Auto) 85.9 H, Lymph % (Auto) 8.1 L, [place] % (Auto) 3.3, Eos % (Auto) 1.6, Baso % (Auto) 1.1, Neut # (Auto) 10.7 H, Lymph # (Auto) 1.0, [place] # (Auto) 0.4, Eos # (Auto) 0.2, Baso # (Auto) 0.1, Total Counted 100, Neutrophils % (Manual) 86 H, Lymphocytes % (Manual) 6 L, Monocytes % (Manual) 7, Eosinophils % (Manual) 1, Platelet Estimate Normal, RBC Morphology Normal, Sodium 136, Potassium 4.4, Chloride 102, Carbon Dioxide 27, Anion Gap 11.4, BUN 11, Creatinine 1.20, Estimated Creat Clear 129, Estimated GFR 64, Est GFR ( Amer) 77, Glucose 131 H, Calcium 9.3, Total Bilirubin 1.2, AST 42, ALT 59, Alkaline Phosphatase 92, Total Protein 7.8, Albumin 4.8, Globulin 3.0, Albumin/Globulin Ratio 1.6, Lipase 67, HIV 1&2 Antibody Rapid Nonreactive 08/07/24 12:42: Lactate 1.4 08/08/24 05:42: WBC 13.7 H, RBC 4.51 L, Hgb 15.2 D, Hct 43.4, MCV 96.3 H, MCH 33.6 H, MCHC 34.9, RDW 14.3, Plt Count 224 D, MPV 8.4, Neut % (Auto) 86.0 H, Lymph % (Auto) 8.3 L, [place] % (Auto) 4.2, Eos % (Auto) 0.9, Baso % (Auto) 0.6, Neut # (Auto) 11.7 H, Lymph # (Auto) 1.1, [place] # (Auto) 0.6, Eos # (Auto) 0.1, Baso # (Auto) 0.1 I & O for Last 24 hours: Intake & Output 08/05/24 08/06/24 08/07/24 08/08/24 23:59 23:59 23:59 23:59 Intake Total 1339 / 1339 Output Total 0 / 0 0 / 0 Balance 0 / 1339 1339 / 1339 Weight 286 lb 1.6 oz 287 lb 4.8 oz Constitutional Constitutional: no acute distress *Routine HEENT Exam Head: Present normocephalic Eye: Present EOMI and PERRL ENT: Present mucous membranes moist *Routine Neck Exam Neck: Present supple; Absent lymphadenopathy *Routine Respiratory Exam Respiratory: Present CTA bilaterally *Routine Cardiovascular Exam Cardiovascular: Present RRR *Routine Abdominal Exam Abdominal: Present soft, normoactive bowel sounds, tenderness (LLQ) and obese; Absent distended, rebound or guarding *Routine Rectal Exam Rectal:: deferred *Routine Genitalia Exam Genitalia:: deferred *Routine Extremities Exam Extremities: Absent cyanosis, clubbing or edema *Routine Skin Exam Skin: Present warm; Absent rash *Routine Neurological Exam Neurological: Present alert and oriented X3 H&P: Result Imaging and Cardiology CT scan - abdomen: Status: final report Assessment and Plan *Assessment and plan (1) Pelvic pain: Status: Acute Category: Medical Code(s): R10.2 - Pelvic and perineal pain (2) Diverticulitis: Status: Acute Category: Medical Code(s): K57.92 - Diverticulitis of intestine, part unspecified, without perforation or abscess without bleeding (3) GERD (gastroesophageal reflux disease): Status: Acute Category: Medical Code(s): K21.9 - Gastro-esophageal reflux disease without esophagitis Plan Patient admitted for further evaluation and management of lower abdominal/pelvic pain and surgical consultation. Patient has improved overnight and feels much better now. He does not appear to have appendicitis. Will advance diet to full liquids and continue antibiotics.
--- NOTE | 2024-08-08 08:55 | EXP.SURG.PN ---
Subjective Patient reports: feels better Exam Data for Last 24 hours Vital signs and Labs for Last 24 Hours: Temp Pulse Resp BP Pulse Ox O2 Del Method 97.9 F 98 H 18 153/84 H 97 Room Air 08/08/24 07:38 08/08/24 07:38 08/08/24 07:38 08/08/24 07:38 08/08/24 07:38 08/08/24 07:38 Laboratory Results - last 24 hr 08/07/24 10:41: Urine Color Yellow, Urine Appearance Clear, Urine pH 6.5, Ur Specific [place] 1.020, Urine Protein Negative, Urine Glucose (UA) Negative, Urine Ketones Negative, Urine Blood Negative, Urine Nitrate Negative, Urine Bilirubin Negative, Urine Urobilinogen 0.2, Ur Leukocyte Esterase Negative, Urine RBC None, Urine WBC Occasional 08/07/24 11:50: WBC 12.4 H, RBC 5.18, Hgb 17.5, Hct 49.6, MCV 95.7 H, MCH 33.8 H, MCHC 35.3, RDW 14.2, Plt Count 327, MPV 8.5, Neut % (Auto) 85.9 H, Lymph % (Auto) 8.1 L, [place] % (Auto) 3.3, Eos % (Auto) 1.6, Baso % (Auto) 1.1, Neut # (Auto) 10.7 H, Lymph # (Auto) 1.0, [place] # (Auto) 0.4, Eos # (Auto) 0.2, Baso # (Auto) 0.1, Total Counted 100, Neutrophils % (Manual) 86 H, Lymphocytes % (Manual) 6 L, Monocytes % (Manual) 7, Eosinophils % (Manual) 1, Platelet Estimate Normal, RBC Morphology Normal, Sodium 136, Potassium 4.4, Chloride 102, Carbon Dioxide 27, Anion Gap 11.4, BUN 11, Creatinine 1.20, Estimated Creat Clear 129, Estimated GFR 64, Est GFR ( Amer) 77, Glucose 131 H, Calcium 9.3, Total Bilirubin 1.2, AST 42, ALT 59, Alkaline Phosphatase 92, Total Protein 7.8, Albumin 4.8, Globulin 3.0, Albumin/Globulin Ratio 1.6, Lipase 67, HIV 1&2 Antibody Rapid Nonreactive 08/07/24 12:42: Lactate 1.4 08/08/24 05:42: WBC 13.7 H, RBC 4.51 L, Hgb 15.2 D, Hct 43.4, MCV 96.3 H, MCH 33.6 H, MCHC 34.9, RDW 14.3, Plt Count 224 D, MPV 8.4, Neut % (Auto) 86.0 H, Lymph % (Auto) 8.3 L, [place] % (Auto) 4.2, Eos % (Auto) 0.9, Baso % (Auto) 0.6, Neut # (Auto) 11.7 H, Lymph # (Auto) 1.1, [place] # (Auto) 0.6, Eos # (Auto) 0.1, Baso # (Auto) 0.1 I & O for Last 24 hours: Intake & Output 08/05/24 08/06/24 08/07/24 08/08/24 11:59 11:59 11:59 11:59 Intake Total 1339 / 1339 Output Total 0 / 0 Balance 1339 / 1339 Weight 280 lb 287 lb 4.8 oz Constitutional Constitutional: no acute distress *Routine Respiratory Exam Respiratory: Absent respiratory distress *Routine Abdominal Exam Abdominal: Present soft and tenderness (Overall improved. More focused in left lower quadrant/suprapubic region.) Progress Note: A&P Assessment and plan (1) Colitis: Status: Acute Assessment and plan: Continuing to improve. No evidence of appendicitis. Continue overall management as per primary service.
[2024-08-08] MEDS: COLCHICINE 0.6MG TABLET 0.6 MG PO (09:22)
[2024-08-08] MEDS: IRBESARTAN 150MG TAB 150 MG PO (09:22)
[2024-08-08] MEDS: PANTOPRAZOLE 40MG TABLET 40 MG PO ×2 (09:56→21:46)
[2024-08-08] MEDS: FOLIC ACID 1MG TABLET 1 MG PO (09:56)
[2024-08-08] MEDS: THIAMINE 100MG TABLET 100 MG PO (09:56)
[2024-08-08 10:58] LABS: Lymphocytes % 5 % (10-50); Monocytes % 3 % (2-9); Neutrophils % 92 % (42-76); Platelet Estimate Normal; RBC Morphology Normal; Total Cells Counted 100
--- NOTE | 2024-08-08 15:08 | ECG_ITS ---
APPROVED REPORT Exam: Resting ECG HR:120 bpm ECG Measurements Heart Rate 120 AXES TX 151 P 108 QRSd 67 QRS 60 QT 293 T 93 QTc 364 Conclusion SINUS TACHYCARDIA LOW QRS VOLTAGE IN PRECORDIAL LEADS [QRS DEFLECTION < 1.0 mV IN CHEST LEADS] NONSPECIFIC T-WAVE ABNORMALITY ABNORMAL RHYTHM ECG UNCONFIRMED REPORT Electronically signed by : Moody Hanna MD 08/09/2024 08:39:44
[2024-08-08 15:41] VITALS: BP 144/80; PULSE 110; RESP 17; TEMP 37.1; O2SAT 96
[2024-08-08] MEDS: MULTIVITAMIN TABLET 1 EACH PO (16:32)
--- NOTE | 2024-08-08 18:10 | PC.NURSE ---
PT HAS DOING WELL THIS SHIFT. NO C/O ABD PAIN THIS SHIFT. PT DID C/O A HEADACHE X1 THIS SHIFT AND WAS MEDICATED PER MAR FOR PAIN. AMBULATING WELL INDEPENDENTLY. VSS.
[2024-08-08 20:00] VITALS: BP 147/82; PULSE 107; RESP 18; TEMP 37.4; O2SAT 96
[2024-08-09] VITALS: BP 137/79; PULSE 97; RESP 18; TEMP 36.9; O2SAT 98
[2024-08-09 04:00] VITALS: BP 136/83; PULSE 105; RESP 16; TEMP 36.8; O2SAT 96; BMI 40.7
--- NOTE | 2024-08-09 05:12 | PC.NURSE ---
Patient is alert and oriented x4. Patient had a CIWA score taken once this shift (at 21:00) per history of alcohol consumption; patient did not report any other withdrawal besides a mild headache (pain level 2). He was given Tylenol per DEC; patient was able to rest after receiving it and has not reported any other headaches thus far. Patient was observed to have eyes closed, respirations even and unlabored on room air, and no apparent distress throughout the night. Patient reported that he continues to have lower abdominal pain that has not gotten better but has not gotten worse either. He has not asked for any pain medication to treat his abdominal pain. Patient has been ambulating independently to the bathroom; patient tolerates ambulation well. He has remained on a full liquid diet; patient has only requested Starry sodas during this shift. Upon auscultation, patient's lungs were clear and bowel sounds were active. Patient's vital signs have been stable this shift; however, blood pressures and heart rate have been slightly elevated. Patient has received his scheduled medications per DEC. Normal saline fluid order has been discontinued during the previous shift per MD and report; order remains on DEC but has been cleared accordingly. At this time, the patient does not have any further complaints. He is currently awake, resting in bed. No acute changes noted thus far. Call light within reach.
[2024-08-09] MEDS: PIPERACILLIN/TAZO 4.5 GM in 0.9 % SODIUM CHLORIDE 100 ML IV (06:05)
[2024-08-09 07:42] VITALS: BP 133/79; PULSE 108; RESP 18; TEMP 37; O2SAT 97
[2024-08-09] MEDS: IRBESARTAN 150MG TAB 150 MG PO (08:22)
[2024-08-09] MEDS: FOLIC ACID 1MG TABLET 1 MG PO (08:22)
[2024-08-09] MEDS: COLCHICINE 0.6MG TABLET 0.6 MG PO (08:22)
[2024-08-09] MEDS: THIAMINE 100MG TABLET 100 MG PO (08:23)
--- NOTE | 2024-08-09 08:26 | EXP.ACUTE.PN ---
Subjective *Date: 08/09/24 *Time: 08:39 Interval history: Patient states he feels better every day. He describes his abdominal discomfort as soreness. He is able to eat a full liquid diet. He denies nausea and has not vomited. Bowels have moved. He is voiding QS. He denies chest pain and shortness of breath. Medical Exam Vital signs and Labs for Last 24 Hours: Vital Signs Temp Pulse Resp BP Pulse Ox O2 Del Method 08/09/24 07:42 98.6 F 108 H 18 133/79 97 Room Air 08/09/24 05:00 Room Air 08/09/24 04:00 98.3 F 105 H 16 136/83 96 Room Air 08/09/24 03:00 Room Air 08/09/24 01:00 Room Air 08/09/24 00:00 98.4 F 97 H 18 137/79 98 Room Air 08/08/24 23:00 Room Air 08/08/24 21:00 Room Air 08/08/24 20:00 107 H 18 96 Room Air 08/08/24 20:00 99.3 F 107 H 18 147/82 H 96 Room Air 08/08/24 18:48 Room Air 08/08/24 17:00 Room Air 08/08/24 15:41 98.8 F 110 H 17 144/80 H 96 Room Air 08/08/24 15:00 Room Air 08/08/24 13:00 Room Air 08/08/24 11:00 Room Air 08/08/24 09:00 Room Air Intake and Output 08/08/24 08/09/24 08/09/24 19:59 03:59 11:59 Intake Total 1038 / 1038 368 / 1406 Output Total 0 / 0 0 / 0 Balance 1038 / 1038 368 / 1406 Intake: Intake, Oral Amount 1038 / 1038 180 / 1218 Infusion Intake 188 / 188 0.9 % Sodium Chloride 1000ML 1, 88 / 88 000 ml @ 150 mls/hr IV .[id number] [facility] Rx#:[id number] Piperacillin/Tazo 4.5 gm In 0.9 100 / 100 % Sodium Chloride 100 ml @ 200 mls/hr IV Q8H [facility] Rx#:[id number] Output: Output, Urine Amount 0 / 0 0 / 0 Other: Number of Unmeasured Voids 1 Number of Bowel Movements 2 Weight 284 lb 9.6 oz Patient Weight 10/28/24 11:59 Weight 284 lb 9.6 oz Laboratory Results - last 24 hr 08/08/24 05:42: Total Counted 100, Neutrophils % (Manual) 92 H, Lymphocytes % (Manual) 5 L, Monocytes % (Manual) 3, Platelet Estimate Normal, RBC Morphology Normal I & O for Labs for Last 24 Hours: Intake & Output 08/06/24 08/07/24 08/08/24 08/09/24 11:59 11:59 11:59 11:59 Intake Total 1339 / 1339 1406 / 1406 Output Total 0 / 0 0 / 0 Balance 1339 / 1339 1406 / 1406 Weight 280 lb 287 lb 4.8 oz 284 lb 9.6 oz Microbiology Reports for the Last 24 Hours: Microbiology 08/07/24 15:10 Blood Blood Culture - Preliminary NO GROWTH AFTER 24 HOURS 08/07/24 14:58 Blood Blood Culture - Preliminary NO GROWTH AFTER 24 HOURS Constitutional: Present no acute distress Comment:: Sitting in chair at bedside eating breakfast. He appears comfortable Respiratory: Present CTA bilaterally (Anteriorly and posteriorly) Cardiac: Present Reg Rate and Rhythm GI: Present soft and normal bowel sounds; Absent distention (Obese), tenderness or guarding Extremities: Present normal inspection; Absent tenderness or edema Neuro: Present alert, awake and oriented x 3 Assessment and Plan *Assessment and plan (1) Pelvic pain: Status: Acute Category: Medical Code(s): R10.2 - Pelvic and perineal pain (2) Diverticulitis: Status: Acute Category: Medical Code(s): K57.92 - Diverticulitis of intestine, part unspecified, without perforation or abscess without bleeding (3) GERD (gastroesophageal reflux disease): Status: Acute Category: Medical Code(s): K21.9 - Gastro-esophageal reflux disease without esophagitis Plan Patient has continued to improve. Will be followed by surgery. Probably home. IV fluids discontinued Dr. Crooks entry - Saw patient, agree with above note. OK for discharge with oral antibiotics, off work until office f/u in 3 days.
[2024-08-10 05:10] LABS: HCV Ab Non Reactive (Non Reactive)
--- NOTE | 2024-08-10 12:39 | SW/DCPLANNER ---
Hospital follow up phone call: patient stated he is doing well at home and feeling better. Patient is aware of his follow up appointment w/ Dr Crooks and would like to speak w/ him prior to scheduling a follow up w/ Dr Mccurdy. Patient was able to potato picker his new medication at discharge. No further needs/questions at this time.
--- NOTE | 2024-08-16 13:16 | P.DS_ITS ---
General Admission date:: 08/07/24 Discharge date: 08/09/24 HPI HPI HPI: Mr. Pierce is a 54 year old patient of [facility] who presented to [facility] urgent treatment clinic yesterday complaining of a 3 or 4 day history of lower pelvic pain. He states the pain was worse on the left than the right. It was also made worse by activity/heavy lifting and with straining to urinate or have a bowel movement. He denies constipation and diarrhea. He has not noticed blood in his bowel movements. He states that over the past week he has eaten quite a few peanuts. He typically avoids peanuts, seeds and popcorn due to a history of diverticulitis. Hospital Course Hospital Course Hospital Course: On admission patient was seen by surgeon, Dr. Pike, who felt he had diverticulitis. He felt the radiologist interpretation of 8.1 mm appendix most likely represented longstanding physiologic enlargement. He did not have isolated right lower quadrant tenderness. Patient did feel better overnight and by 08/09/2024 he describes his abdominal discomfort as more like a soreness. He was taking a full liquid diet without any problems without nausea or vomiting. Bowels did move. He did receive piperacillin IV during his stay. Blood culture showed no growth. On 08/09/2024 patient remained stable and he was okay for discharge with oral antibiotics. He was to follow-up in the office in 3 days. Exam Data for Last 24 hours Vital signs and Labs for Last 24 Hours: Temp Pulse Resp BP Pulse Ox O2 Del Method 98.6 F 108 H 18 133/79 97 Room Air 08/09/24 07:42 08/09/24 07:42 08/09/24 07:42 08/09/24 07:42 08/09/24 07:42 08/09/24 09:00 Narrative: Constitutional: Present no acute distress Comment:: Sitting in chair at bedside eating breakfast. He appears comfortable Respiratory: Present CTA bilaterally (Anteriorly and posteriorly) Cardiac: Present Reg Rate and Rhythm GI: Present soft and normal bowel sounds; Absent distention (Obese), tenderness or guarding Extremities: Present normal inspection; Absent tenderness or edema Neuro: Present alert, awake and oriented x 3 Results Data Completed and Pending Completed studies during hospitalization [Text1]: 08/07/2024 CT abd/pelvis IMPRESSION: 1. Acute colitis/diverticulitis involving mid sigmoid colon. As an underlying colonic malignancy cannot be excluded, a follow-up examination after a course of treatment is recommended if clinically warranted. 2. Mild increase in appendiceal diameter measuring approximately 8.1 mm without surrounding inflammation. Long-standing physiologic enlargement is suspected but early acute appendicitis is conceivable. Recommend clinical correlation. 3. Mild splenomegaly. 4. Mild hepatomegaly and fatty hepatic infiltration. 08/07/24 10:41: Urine Color Yellow, Urine Appearance Clear, Urine pH 6.5, Ur Specific Omega 1.020, Urine Protein Negative, Urine Glucose (UA) Negative, Urine Ketones Negative, Urine Blood Negative, Urine Nitrate Negative, Urine Bilirubin Negative, Urine Urobilinogen 0.2, Ur Leukocyte Esterase Negative, Urine RBC None, Urine WBC Occasional 08/07/24 11:50: WBC 12.4 H, RBC 5.18, Hgb 17.5, Hct 49.6, MCV 95.7 H, MCH 33.8 H , MCHC 35.3, RDW 14.2, Plt Count 327, MPV 8.5, Neut % (Auto) 85.9 H, Lymph % (Auto) 8.1 L, Bullitt % (Auto) 3.3, Eos % (Auto) 1.6, Baso % (Auto) 1.1, Neut # (Auto) 10.7 H, Lymph # (Auto) 1.0, Bull[place] # (Auto) 0.4, Eos # (Auto) 0.2, Baso # (Auto) 0.1, Total Counted 100, Neutrophils % (Manual) 86 H, Lymphocytes % (Manual) 6 L, Monocytes % (Manual) 7, Eosinophils % (Manual) 1, Platelet Estimate Normal, RBC Morphology Normal, Sodium 136, Potassium 4.4, Chloride 102, Carbon Dioxide 27, Anion Gap 11.4, BUN 11, Creatinine 1.20, Estimated Creat Clear 129, Estimated GFR 64, Est GFR ( Amer) 77, Glucose 131 H, Calcium 9.3, Total Bilirubin 1.2, AST 42, ALT 59, Alkaline Phosphatase 92, Total Protein 7.8, Albumin 4.8, Globulin 3.0, Albumin/Globulin Ratio 1.6, Lipase 67, HIV 1&2 Antibody Rapid Nonreactive 08/07/24 12:42: Lactate 1.4 08/08/24 05:42: WBC 13.7 H, RBC 4.51 L, Hgb 15.2 D, Hct 43.4, MCV 96.3 H, MCH 33.6 H, MCHC 34.9, RDW 14.3, Plt Count 224 D, MPV 8.4, Neut % (Auto) 86.0 H, Lymph % (Auto) 8.3 L, Bull[place] % (Auto) 4.2, Eos % (Auto) 0.9, Baso % (Auto) 0.6, Neut # (Auto) 11.7 H, Lymph # (Auto) 1.1, Bullitt # (Auto) 0.6, Eos # (Auto) 0.1, B aso # (Auto) 0.1 DS: Diagnosis Discharge Diagnosis (1) Pelvic pain: Status: Acute Code(s): R10.2 - Pelvic and perineal pain (2) Diverticulitis: Status: Acute Code(s): K57.92 - Diverticulitis of intestine, part unspecified, without perforation or abscess without bleeding (3) GERD (gastroesophageal reflux disease): Status: Acute Code(s): K21.9 - Gastro-esophageal reflux disease without esophagitis Meds Home Medications and Allergies Home Medications ?Medication ?Instructions ?Recorded ?Confirmed ?Type colchicine 0.6 mg tablet 0.6 mg PO DAILY 08/07/24 08/07/24 History irbesartan 150 mg tablet 150 mg PO HS 08/07/24 08/08/24 History omeprazole 20 mg capsule,delayed 20 mg PO HS 08/07/24 08/08/24 History release allopurinol 100 mg tablet 100 mg PO DAILY 08/08/24 08/08/24 History levofloxacin 500 mg tablet 500 mg PO DAILY 7 days #7 tabs 08/09/24 Rx New Prescriptions to Start Prescriptions: levofloxacin Geo Crooks Allergies Allergy/AdvReac Type Severity Reaction Status Date / Time Penicillins [PENICILLINS] Allergy Unknown Verified 01/26/24 10:36 Discharge Plan Disposition Patient Disposition: Home, Self-Care Condition: Good Follow up Plan Follow up with: Geo Crooks MD [Primary Care Provider] - 08/12/24 10:15 am Adam Mccurdy MD [Staff Physician] - 2 weeks Prescriptions/Medication Reconciliation: New levofloxacin 500 mg tablet 500 mg PO DAILY 7 Days Qty: 7 0RF Continued omeprazole 20 mg capsule,delayed release(DR/EC) 20 mg PO HS irbesartan 150 mg tablet 150 mg PO HS colchicine 0.6 mg tablet 0.6 mg PO DAILY allopurinol 100 mg tablet 100 mg PO DAILY Problem Reconciliation Problems Reviewed?: Yes Patient Discharge Instructions ACTIVITY: Limited activity DIET: continue same diet Patient Instructions: Diverticulitis, DI for Diverticulitis Print Language: French Providers Primary Care Provider: Geo Crooks Admit Provider: Geo Crooks Attending Provider: Geo Crooks
== END 2024-08-09 09:47 | disposition home or self-care (01) ==
LOC: UTC 11:34 → COUGHCL 11:44 → ER 11:44 → 2ND 16:04
PROVIDERS: Nurse Practitioner; Surgery; Admitting Provider Family Medicine; Emergency Provider Student in an Organized Health Care Education/Training Program; PCP Family Medicine; Visit Provider Family Medicine
DX: K52.9 Noninfective gastroenteritis and colitis, unspecified (principal); F17.210 Nicotine dependence, cigarettes, uncomplicated; Z79.899 Other long term (current) drug therapy; K21.9 Gastro-esophageal reflux disease without esophagitis; K57.32 Diverticulitis of large intestine without perforation or abscess without bleeding; I10 Essential (primary) hypertension; E78.5 Hyperlipidemia, unspecified
CPT/HCPCS: 36415; 74177; 80053; 81001; 83605; 83690; 85007; 85025; 85027; 86803; 87040; 87389; 93005; 99285; G0378; J2543; J7030; J7120; Q9967